=== PATIENT | female | born 1995 | race Caucasian/White ===

== ENCOUNTER 2022-08-13 06:54 | Emergency (ER) | payer SELFPAY ==
[2022-08-13] MEDS ORDERED: Bupivacaine 0.25% 10 ML VIAL ONE (07:24)
[2022-08-13] MEDS ORDERED: Ondansetron ODT 4 MG TAB ONE (07:29)
== END 2022-08-13 08:12 | disposition home or self-care (01) ==
LOC: ERS 06:54
DX: K04.7 Periapical abscess without sinus (principal); F17.210 Nicotine dependence, cigarettes, uncomplicated
CPT/HCPCS: 64400; Q0162; S0020

== ENCOUNTER 2025-06-13 16:42 | Emergency (ER) | payer SELFPAY ==
[2025-06-13] MEDS ORDERED: Metoclopramide HCl 10 MG (2 mL) VIAL ONE (17:58)
[2025-06-13] MEDS ORDERED: diphenhydrAMINE 50 MG/ML VIAL ONE (17:58)
[2025-06-13 18:00] LABS: Pregu Control Background? CLEAR/WHITE (CLR/WHITE); Pregu Control Bar Appear? YES (CONTROL BAR)
[2025-06-13 18:02] LABS: Pregnancy Test - Urine (BHCG) POSITIVE (Negative)
[2025-06-13 18:08] LABS: CAUTI Indications for Culture Pelvic or flank pain; Glucose, Urine (Dipstick) Normal (Negative); Leukocyte 250 Leu/uL (Negative); Protein, Urine (Dipstick) 50 mg/dL (Neg-Trace); Specific Gravity, Urine 1.019 (1.002-1.036)
[2025-06-13 18:09] LABS: Bacteria/HPF 1+ HPF (None Seen)
[2025-06-13 18:10] LABS: WBC/HPF 21-50 HPF (0-3)
[2025-06-13 18:11] LABS: Urine Culture Reflex Yes Yes
[2025-06-13 18:24] LABS: #Basophils 0.03 10x3/uL (0.0-0.2); #Eosinophils Less than 0.03 10x3/uL (0.0-0.7); #Monocytes 0.90 10x3/uL (0.11-0.59); #Neutrophils 11.69 10x3/uL (1.40-6.50); %Basophils 0.2 % (0.0-1.0); %Eosinophils 0.0 % (0.0-10.0); %Lymphocytes 8.0 % (21.0-51.0); %Monocytes 6.5 % (0.0-10.0); %Neutrophils 84.9 % (42.0-75.0); Hematocrit 42.7 % (36.0-47.0); Hemoglobin 14.4 g/dL (12.0-16.0); Mean Corpuscular Hemoglobin 31.5 pg (27.0-31.0); Mean Corpuscular Volume 93.4 fL (78.0-98.0); Platelet Count 329 10x3/uL (130-400); Red Blood Cell (RBC) Count 4.57 mill/uL (4.20-5.40); White Blood Cell (WBC) Count 13.78 10x3/uL (4.8-10.8)
[2025-06-13 18:42] LABS: ALT (SGPT) 36 U/L (Less than 34); AST (SGOT) 25 U/L (11-34); Albumin 4.6 g/dL (3.1-4.5); Alkaline Phosphatase 130 U/L (40-110); Anion Gap 18 mmol/L (10-20); BUN (Urea Nitrogen) 6 mg/dL (7.0-18.7); Bilirubin, Total 0.6 mg/dL (0.3-1.2); Calc. Creatinine Clearance 0 mL/min (70-130); Calcium 9.6 mg/dL (7.8-10.44); Carbon Dioxide 23 mmol/L (22-29); Chloride 103 mmol/L (98-107); Globulin 3.5 g/dL (2.4-3.5); Glucose 97 mg/dL (70-105); Lipase 12 U/L (8-78); Magnesium 2.1 mg/dL (1.6-2.6); Potassium 3.5 mmol/L (3.5-5.1); Sodium 140 mmol/L (136-145)
[2025-06-13] MEDS ORDERED: cefTRIAXone (ROCEPHIN) 1 GM VIAL ONE (20:17)
== END 2025-06-13 21:02 | disposition home or self-care (01) ==
LOC: ERS 16:42
DX: O21.9 Vomiting of pregnancy, unspecified (principal); O23.40 Unspecified infection of urinary tract in pregnancy, unspecified trimester; N39.0 Urinary tract infection, site not specified; D72.829 Elevated white blood cell count, unspecified; Z3A.00 Weeks of gestation of pregnancy not specified
CPT/HCPCS: 80053; 81001; 81025; 83690; 83735; 84702; 85025; 87086; 96361; 96365; 96367; 96375; J0696; J1200; J2765